=== PATIENT | female | born 1955 ===

== ENCOUNTER 2018-03-11 11:17 | Day surgery (SDC) | payer MEDICAID ==
[2018-03-11] MEDS ORDERED: BUPIVACAINE HCL 0.25% MPF 10 ML SOL INFIL ONE (12:07)
[2018-03-11] MEDS: TRIAMCINOLONE ACETONIDE 40 MG/ML SUS ONE ×2 (12:17→12:30)
[2018-03-11 12:30] VITALS: RESP 16
[2018-03-11 12:42] VITALS: BP 121/84; PULSE 73; TEMP 97.8; O2SAT 94
== END 2018-03-11 13:00 | disposition home or self-care (01) | DRG 552 ==
LOC: SURG 11:17
PROVIDERS: ATTEND Nurse Anesthetist, Certified Registered
DX: M54.5 Low back pain (principal)
CPT/HCPCS: J3300

== ENCOUNTER 2018-04-22 12:12 | Day surgery (SDC) | payer MEDICAID ==
[2018-04-22 12:43] VITALS: RESP 16
[2018-04-22] MEDS ORDERED: LIDOCAINE HCL 1% MPF 30 SOL ONE (13:25)
[2018-04-22] MEDS ORDERED: BUPIVACAINE HCL 0.25% MPF 30 ML SOL INFIL ONE (13:25)
[2018-04-22 14:13] VITALS: BP 160/81; PULSE 62; TEMP 98.1; O2SAT 98
== END 2018-04-22 14:29 | disposition home or self-care (01) | DRG 554 ==
LOC: SURG 12:12
PROVIDERS: ATTEND Nurse Anesthetist, Certified Registered
DX: M12.88 Other specific arthropathies, not elsewhere classified, other specified site (principal)
CPT/HCPCS: J2001

== ENCOUNTER 2018-05-06 11:34 | Day surgery (SDC) | payer MEDICAID ==
[2018-05-06] MEDS ORDERED: DIAZEPAM 5 MG TAB ONE (11:48)
[2018-05-06] MEDS ORDERED: LIDOCAINE HCL 2% MPF 10 ML SOL ONE (12:21)
[2018-05-06] MEDS ORDERED: BUPIVACAINE HCL 0.5% MPF 10 ML SOL ONE (12:21)
[2018-05-06 12:36] VITALS: RESP 14
[2018-05-06 12:41] VITALS: O2SAT 96
[2018-05-06 12:58] VITALS: BP 142/97; PULSE 67; TEMP 98.4
== END 2018-05-06 13:12 | disposition home or self-care (01) | DRG 554 ==
LOC: SURG 11:34
PROVIDERS: ATTEND Nurse Anesthetist, Certified Registered
DX: M12.88 Other specific arthropathies, not elsewhere classified, other specified site (principal)
CPT/HCPCS: A9270-GY

== ENCOUNTER 2018-06-24 12:44 | Day surgery (SDC) | payer MEDICAID ==
[2018-06-24] MEDS ORDERED: BUPIVACAINE HCL 0.5% MPF 10 ML SOL ONE (13:32)
[2018-06-24] MEDS ORDERED: LIDOCAINE HCL 2% MPF 10 ML SOL ONE (13:32)
[2018-06-24] MEDS ORDERED: TRIAMCINOLONE ACETONIDE 40 MG/ML SUS ONE (13:33)
[2018-06-24] MEDS ORDERED: SODIUM CHLORIDE 0.9% FLUSH 10 ML SOL IV ONE ×3 (13:42→14:02)
[2018-06-24] MEDS: MIDAZOLAM 2 MG/2 ML SOL ONE ×2 (13:42→13:55)
[2018-06-24] MEDS: FENTANYL 100MCG/2ML SOL ONE ×2 (13:42→14:02)
[2018-06-24 13:47] VITALS: RESP 16
[2018-06-24 14:35] VITALS: BP 141/66; PULSE 68; TEMP 97.4; O2SAT 95
== END 2018-06-24 14:55 | disposition home or self-care (01) | DRG 554 ==
LOC: SURG 12:44
PROVIDERS: ATTEND Nurse Anesthetist, Certified Registered
DX: M12.88 Other specific arthropathies, not elsewhere classified, other specified site (principal)
CPT/HCPCS: J2250; J3010; J3300

== ENCOUNTER 2018-08-12 10:54 | Day surgery (SDC) | payer MEDICAID ==
[2018-08-12] MEDS ORDERED: BUPIVACAINE HCL 0.25% MPF 30 ML SOL INFIL ONE (11:23)
[2018-08-12] MEDS ORDERED: DEXAMETHASONE SOD PHOS PF 10 MG/ML SOL IJ ONE (11:23)
[2018-08-12 11:36] VITALS: PULSE 67
[2018-08-12 11:53] VITALS: BP 136/80; RESP 20; TEMP 97.5; O2SAT 96
== END 2018-08-12 12:05 | disposition home or self-care (01) | DRG 552 ==
LOC: SURG 10:54
PROVIDERS: ATTEND Nurse Anesthetist, Certified Registered
DX: M51.17 Intervertebral disc disorders with radiculopathy, lumbosacral region (principal)
CPT/HCPCS: J1100

== ENCOUNTER 2018-12-22 12:20 | Day surgery (SDC) | payer MEDICAID ==
[2018-12-22 12:50] VITALS: TEMP 97.4
[2018-12-22] MEDS ORDERED: TRIAMCINOLONE ACETONIDE 40 MG/ML SUS ONE (13:02)
[2018-12-22] MEDS ORDERED: BUPIVACAINE HCL 0.25% MPF 30 ML SOL INFIL ONE (13:03)
[2018-12-22 13:27] VITALS: BP 126/75; PULSE 67; RESP 18; O2SAT 95
== END 2018-12-22 13:40 | disposition home or self-care (01) | DRG 554 ==
LOC: SURG 12:20
PROVIDERS: ATTEND Nurse Anesthetist, Certified Registered
DX: M13.852 Other specified arthritis, left hip (principal); M70.72 Other bursitis of hip, left hip
CPT/HCPCS: J3300